=== PATIENT | male | born 1980 | race African-American/Black ===

== ENCOUNTER 2017-07-01 23:30 | Emergency (ER) | payer BC | END 2017-07-02 02:00 | disposition home or self-care (01) | LOC: FTE 23:30 | DX: R21 Rash and other nonspecific skin eruption (principal) | CPT/HCPCS: 99283; Z7502 ==

== ENCOUNTER 2017-07-15 00:06 | Emergency (ER) | payer BC | END 2017-07-15 05:21 | disposition home or self-care (01) | LOC: FTE 00:06 | DX: R21 Rash and other nonspecific skin eruption (principal) | CPT/HCPCS: 99283; Z7502 ==

== ENCOUNTER 2018-12-12 08:40 | Emergency (ER) | payer BC | END 2018-12-12 09:15 | disposition home or self-care (01) | LOC: FTE 08:40 | DX: J06.9 Acute upper respiratory infection, unspecified (principal); M25.552 Pain in left hip | CPT/HCPCS: 99283; Z7502 ==